=== PATIENT | male | born 1960 | race Hispanic/Latino ===

== ENCOUNTER 2020-01-25 09:25 | Emergency (ER) | payer OTHER ==
[2020-01-25] MEDS ORDERED: IBUPROFEN 400 MG TABLET ONE (09:40)
[2020-01-25] MEDS ORDERED: IBUPROFEN 200 MG TAB ONE (09:41)
== END 2020-01-25 10:34 | disposition home or self-care (01) ==
LOC: EDH 09:25
DX: S43.492A Other sprain of left shoulder joint, initial encounter (principal); I10 Essential (primary) hypertension; Z72.0 Tobacco use; Z98.890 Other specified postprocedural states; W18.39XA Other fall on same level, initial encounter; Y93.01 Activity, walking, marching and hiking; Y92.89 Other specified places as the place of occurrence of the external cause; Y99.8 Other external cause status
CPT/HCPCS: 73030